=== PATIENT | female | born 1980 | race Caucasian/White ===

== ENCOUNTER 2024-08-24 20:56 | Emergency (ER) | payer OTHER, SELFPAY ==
[2024-08-24 20:57] VITALS: BP 108/81
--- NOTE | 2024-08-24 21:42 | ED.GENMED ---
History of Present Illness
General
Chief Complaint: Eye Problems
Time Seen by Provider: 08/24/24 21:09
History of Present Illness
History of Present Illness:
43-year-old female presents for evaluation of right inner eye discomfort after a hard-boiled egg exploded in her face. Denies blurry vision. Currently wearing glasses, but does wear contacts on occasion.
Past History
Past History
ED Past Medical History: None
Social History
Tobacco: Non-smoker
Alcohol: None
Living: with family
Review of Systems
Review of Systems
Allergies reviewed?: Yes
All Other Systems: ROS reviewed and negative except as documented in HPI and ROS
Phy Exam
Physical Exam
Physical Exam:
GEN: Well appearing, NAD, WDWN
HEENT: Oral mucosa moist, no scleral icterus
Eyes: No conjunctival injection or hyperemia, no hyphema or hypopyon. Extraocular motions intact. Scant fluorescein uptake to the medial sclera, no obvious foreign bodies
Cardiac: Regular rate
Lung: No respiratory distress, no tachypnea
MSK: No gross deformity or injuries
Skin: Good color, no pallor or jaundice, no rashes
Neuro: AO x3, moves all extremities freely
Psych: Calm, cooperative
Course
Orders/Labs/Results
Orders:
Orders
08/24/24 21:42
Erythromycin (Ilotycin) [Erythromycin 0.5% Ophthalmic Ointment] See Dose Instructions OPHTH NOW STA
08/24/24 21:54
Fluorescein Sodium [Ful-Aparna] 1 mg .ROUTE .STK-MED ONE
Tetracaine HCl [Tetracaine 0.5% Ophthalmic Solution] 1 drop .ROUTE .STK-MED ONE
Vital Signs
Initial and Last Documented VS:
Initial Vital Signs
Temp Pulse Resp BP Pulse Ox
98.3 F 74 20 108/81 99
08/24/24 20:57 08/24/24 20:57 08/24/24 20:57 08/24/24 20:57 08/24/24 20:57
Last Documented Vital Signs
Temp Pulse Resp BP Pulse Ox
98.3 F 74 20 108/81 99
08/24/24 20:57 08/24/24 20:57 08/24/24 20:57 08/24/24 20:57 08/24/24 20:57
MDM/Problems Addressed
MDM/Problems Addressed:
Exam is relatively benign, likely a minimal thermal burn to the eye, will treat with topical erythromycin, recommend avoidance of contact lenses for the next 5 days, outpatient optometry/ophthalmology follow-up if symptoms not improving
*Critical Care Note
Total Time (30-74mins, 75-104mins- exclusive of procedures): Not Applicable
ED Attending Note
-
Portions of this chart may have been created with voice recognition software.� Occasional wrong word or��sound alike� substitutions may have occurred due to the inherent limitations of voice recognition software.
Discharge Plan
Departure
Patient Disposition: Home (Routine Discharge)
Date of Disposition: 08/24/24
Time of Disposition: 21:42
Patient with high blood pressure during this ER visit?: No
Discharge Problem:
Thermal burn of cornea
Instructions: Corneal Abrasion (DC)
Prescriptions:
No Action
vit-iron fum-folic ac [ Vitamin with Minerals] 1 EACH tablet
1 ea PO QPM
Calcium Tab
1 tab PO QPM
Patient Comments:
pt does not know dosage of calcium
acetaminophen 325 MG tablet
650 mg PO Q3HPRN PRN (Reason: mild pain) Qty: 0 0RF
sennosides-docusate sodium 1 TABLET tablet
1 tab PO DAILYPRN PRN (Reason: constipation) Qty: 0 0RF
Referrals:
Javier Quiles MD [Family Provider] -
Activity Restrictions/Additional Instructions:
Your symptoms will likely improve in 48 hours
If you do not improve in 48 hours, follow up with your eye doctor
Apply the ointment three times per day for 3 days to prevent infection; it may blur your vision for 10-20 minutes after application
Interventions
Interventions:
*Risk Screen - Suicide Last Done: 08/24/24 21:23
*General Assessment Last Done: 08/24/24 20:57
*Neglect/Abuse Screening Last Done: 08/24/24 21:23
ED- Fall Risk Assessment Last Done: 08/24/24 22:07
*ED COVID-19 Vaccine History Last Done: 08/24/24 21:23
*Nursing Disposition Last Done: 08/24/24 22:07
Discharge Date and Time
Print Language: SUDANESE
[2024-08-24] MEDS: ERYTHROMYCIN 0.5% OPHTHALMIC OINTMENT 1 APPLIC OPHTH (21:57)
[2024-08-24 22:04] VITALS: BP 108/58
== END 2024-08-24 22:07 | disposition home or self-care (01) ==
LOC: EMR 20:56
PROVIDERS: EMERGENCY PHYSICIAN Emergency Medicine; FAMILY PHYSICIAN Family Medicine
DX: T26.11XA Burn of cornea and conjunctival sac, right eye, initial encounter (principal); X10.1XXA Contact with hot food, initial encounter; Z88.6 Allergy status to analgesic agent; Z91.018 Allergy to other foods; Z91.048 Other nonmedicinal substance allergy status
CPT/HCPCS: 99283

== ENCOUNTER → 2025-01-09 10:30 | Outpatient (REF) | payer OTHER, SELFPAY | LOC: HWWDC 10:30 | PROVIDERS: ATTENDING PHYSICIAN Obstetrics & Gynecology; FAMILY PHYSICIAN Family Medicine | DX: Z12.31 Encounter for screening mammogram for malignant neoplasm of breast (principal) | CPT/HCPCS: 77063; 77067 ==

== ENCOUNTER 2025-03-01 21:04 | Emergency (ER) | payer OTHER, SELFPAY ==
[2025-03-01 21:08] VITALS: BP 121/76
[2025-03-01 21:40] LABS: Urine Albumin Negative (Neg - Trace); Urine Bilirubin Negative (Negative); Urine Character Clear (Clear); Urine Color Yellow; Urine Glucose Negative (Negative); Urine Ketone Negative (Negative); Urine Leukocyte Negative (Negative); Urine Nitrite Negative (Negative); Urine Urobilinogen Negative (Neg - 1+); Urine pH 6.5 (5.0-9.0)
[2025-03-01 21:42] LABS: % Basophils 0.6 % (0-2); % Immature Granulocytes 0.2 % (0-0.5); % Lymphocytes 30.1 % (20.5-51.1); % Monocytes 9.2 % (1.7-9.3); % Neutrophils 58.9 % (42.2-75.2); Absolute Basophils 0.1 10^3/uL (0-0.2); Absolute Eosinophils 0.1 10^3/uL (0-0.7); Absolute Lymphocytes 2.8 10^3/uL (1.2-3.4); Absolute Monocytes 0.9 10^3/uL (0.1-0.6); Absolute Neutrophils 5.5 10^3/uL (1.4-6.5); Hematocrit 38.1 % (37.0-47.0); Hemoglobin 12.9 g/dL (12.0-16.0); Mean Corp Hgb Conc. 33.9 g/dL (33.0-37.0); Mean Corpuscular Hgb 28.9 pg (27.0-31.0); Mean Corpuscular Volume 85.4 fL (81.0-99.0); Nucleated Red Blood Cells % 0 %; Platelet Count 223 10^3/uL (130-400); Red Blood Cell Count 4.46 10^6/uL (4.20-5.40); Red Cell Dist. Width 12.5 % (11.5-14.5); White Blood Cell Count 9.3 10^3/uL (4.8-10.8)
[2025-03-01 21:55] LABS: Urine Occult Blood 4+ (Negative); Urine Specific Gravity 1.015 (<1.030)
[2025-03-01 21:58] LABS: HCG, Serum Qualitative Screen Negative
[2025-03-01 22:03] LABS: ALT (SGPT) 23 U/L (0-35); AST (SGOT) 25 U/L (14-36); Albumin 4.5 g/dl (3.5-5.0); Alkaline Phosphatase 50 U/L (38-126); Blood Urea Nitrogen 21 mg/dl (7-17); Calcium 9.9 mg/dl (8.4-10.2); Carbon Dioxide 29 mmol/L (22-30); Chloride 103 mmol/L (98-107); Glucose 83 mg/dl (70-99); Lipase 298 U/L (23-300); Potassium 4.2 mmol/L (3.5-5.1); Sodium 140 mmol/L (135-145); Total Bilirubin 0.7 mg/dl (0.2-1.3); Total Protein 7.3 g/dl (6.3-8.2); eGFR > 60.00
[2025-03-01 22:10] LABS: Urine Squamous Cell 16-20 /LPF (Few)
[2025-03-01 22:11] LABS: Urine White Cell 0-2 /HPF (0-5)
[2025-03-01 22:49] VITALS: BP 116/66
--- NOTE | 2025-03-01 23:47 | ED.GENMED ---
History of Present Illness
General
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
Source: patient
Exam Limitations: none
Time Seen by Provider: 03/01/25 23:27
Nursing documentation reviewed up to this point in time: agreed with
History of Present Illness
History of Present Illness:
This is a 44 y/o female with no pmh who presents emergency department today with concerns of left-sided groin pain that started yesterday. Patient states that when she first started having pain yesterday, she thought nothing of it and thought it was
a groin strain, then however when she woke up today, she noted that the pain is much more severe and she noticed the pain upon wakening. She notes that it is much worse with walking or any movement of her hip. She states that even moving around in
bed makes the pain a lot worse. She also has back pain associated with this as well that she feels like a band across her her back is not worse on one side versus other. Patient has no fevers or chills associated with this, no nausea or vomiting.
She does note some mild dysuria which she first noticed a few days ago after removing a tampon. Patient states that she had a tampon in for longer than she should have, around 9 hours and states that since then, she has felt some irritation in her
vagina but states has not gotten worse. She denies any blood in her urine. She never had pain like this before. Patient denies any inciting injury to the pain, denies any specific injury or exercising that incited the pain. Patient denies any
changes to her appetite.
Past History
Past History
ED Past Medical History: None
Social History
Tobacco: Non-smoker
Alcohol: None
Living: with family
Review of Systems
Review of Systems
All Other Systems: ROS reviewed and negative except as documented in HPI and ROS
Phy Exam
Physical Exam
Physical Exam:
General: Patient is well appearing and in no acute distress; non-toxic
Skin: Warm and dry, no rashes or lesions
Head: Normocephalic, atraumatic
Eyes: Sclera non-icteric. EOMs intact.
Cardiac: Regular rate and rhythm
Peripheral Vascular: No lower extremity swelling or edema
Pulm: Normal respiratory effort
Abdomen: No palpable abdominal masses, mild left sided lower abdominal tenderness to palpation with pain extending into left groin area
Genitourinary: Deferred
Musculoskeletal: Groin pain worsens with hip flexion, no pain with abduction/adduction, internal/external rotation. Tenderness to palpation of proximal anterior thigh
Neuro: CN II-XII intact, no focal neurologic deficits.
Psychiatric: Appropriate mood and affect.
Course
Orders/Labs/Results
Orders:
Orders
03/01/25 21:12
Test Result ONCE
03/01/25 21:22
Complete Blood Count/With Diff Urgent
Comprehensive Metabolic Panel Urgent
HCG, Serum Qualitative Screen Urgent
Lipase Urgent
03/01/25 21:23
Urine Culture Reflexed from UA [Urinalysis Reflex To Culture] Urgent
Date Specimen was Collected: 03/01/25
Time Specimen was Collected: 21:12
Urine Microscopic Reflex Cult Urgent
03/01/25 23:46
Acetaminophen [Tylenol] 1,000 mg PO NOW STA
03/02/25 00:03
CT Abd/pel Without Iv Or Oral Urgent
Reason For Exam: left groin pain, flank pain
Abnormal Lab Results
03/01/25 03/01/25
21:22 21:23
MPV 11.0 H fL
(7.4-10.4)
Absolute Monos (auto) 0.9 H 10^3/uL
(0.1-0.6)
BUN 21 H mg/dl
(7-17)
Ur Occult Blood Reflex 4+ A
(Negative)
Urine RBC 3-6 A /HPF
(0-2)
03/01/25 21:22
03/01/25 21:22
Vital Signs
Initial and Last Documented VS:
Initial Vital Signs
Temp Pulse Resp BP Pulse Ox
98.1 F 81 20 121/76 99
03/01/25 21:08 03/01/25 21:08 03/01/25 21:08 03/01/25 21:08 03/01/25 21:08
Last Documented Vital Signs
Temp Pulse Resp BP Pulse Ox
98.1 F 73 16 112/71 97
03/01/25 21:08 03/02/25 02:15 03/02/25 02:15 03/02/25 02:15 03/02/25 02:15
MDM/Problems Addressed
Differential Diagnosis Includes:
ddx include inguinal strain, kidney stone, vaginitis, ruptured ovarian cyst, iliopsoas strain/biceps femoris strain
MDM/Problems Addressed:
This is a 44-year-old female who presents emergency department today with left-sided groin pain/and thigh pain. History is as above. On physical exam, patient is well-appearing in no acute distress she is afebrile. She does have left groin/pelvic
tenderness with palpation that is worse with hip flexion and worse with ambulation. Pain responds well to Tylenol. In light of the blood in the urine, did obtain plain CAT scan to rule out kidney stone, patient was also concerned about potential
ovarian cyst. CAT scans negative for ovarian cyst, no evidence of kidney stone. Suspect blood in urine as a result of patient's recent menstrual period a few days prior. In light of patient's symptoms worsening with movement, tenderness on the
anteriolateral thigh, and clear worsening with hip flexion, suspect ilioinguinal strain. Low suspicion for ovarian torsion. Discussed conservative measures and follow up with primary. Pt stable for discharge.
*Pulse Oximetry
Patient hypoxic: no
*Critical Care Note
Total Time (30-74mins, 75-104mins- exclusive of procedures): Not Applicable
ED Attending Note
-
Portions of this chart may have been created with voice recognition software.� Occasional wrong word or��sound alike� substitutions may have occurred due to the inherent limitations of voice recognition software.
Discharge Plan
Departure
Patient Disposition: Home (Routine Discharge)
Date of Disposition: 03/02/25
Time of Disposition: 01:56
Patient with high blood pressure during this ER visit?: Yes
Condition: Good
Discharge Problem:
Strain of left inguinal muscle
Instructions: Groin strain
Prescriptions:
New
cyclobenzaprine 15 mg capsule,extended release 24hr
15 mg PO DAILY Qty: 10 0RF
No Action
vit-iron fum-folic ac [ Vitamin with Minerals] 1 EACH tablet
1 ea PO QPM
Calcium Tab
1 tab PO QPM
Patient Comments:
pt does not know dosage of calcium
acetaminophen 325 MG tablet
650 mg PO Q3HPRN PRN (Reason: mild pain) Qty: 0 0RF
sennosides-docusate sodium 1 TABLET tablet
1 tab PO DAILYPRN PRN (Reason: constipation) Qty: 0 0RF
Referrals:
Javier Quiles MD [Family Provider] -
Stand Alone Forms: Return to Work
Activity Restrictions/Additional Instructions:
You likely have a muscle strain, likely of one of your hip flexors likely your iliopsoas muscle.
You can take 1 g of Tylenol (2 extra strength tablets) every 6 hours as needed for pain. Please do not exceed 4 g in 24 hours.
cyclobenzaprine (Flexaril), muscle relaxant, has been sent to your pharmacy. You can take 1 tablet once daily. It can make you drowsy. I recommend taking it at bedtime. Do not drive while taking this medication.
PLEASE RETURN EMERGENCY DEPARTMENT SHOULD DEVELOP AN ACUTE WORSENING OF YOUR PAIN, INABILITY TO AMBULATE, FEVERS OR CHILLS, INTRACTABLE NAUSEA OR VOMITING, BURNING WITH URINATION, ANY OTHER SIGNS OR SYMPTOMS WORRISOME TO YOU.
Interventions
Interventions:
*Risk Screen - Suicide Last Done: 03/02/25 00:00
*General Assessment Last Done: 03/01/25 21:08
*Neglect/Abuse Screening Last Done: 03/01/25 23:41
*ED- Fall Risk Assessment Last Done: 03/01/25 23:41
*ED COVID-19 Vaccine History Last Done: 03/01/25 23:46
*Nursing Disposition Last Done: 03/02/25 02:15
ED-Female Genitourinary Assessment Last Done: 03/01/25 23:41
Discharge Date and Time
Discharge Date/Time: 03/02/25 02:15
Print Language: BULGARIAN
[2025-03-01 23:50] VITALS: BMI 24.1
[2025-03-01] MEDS: TYLENOL 1000 MG PO (23:52)
[2025-03-01 23:56] VITALS: BP 119/65
[2025-03-02 02:15] VITALS: BP 112/71
== END 2025-03-02 02:15 | disposition home or self-care (01) ==
LOC: EMR 21:04
PROVIDERS: Emergency Medicine; EMERGENCY PHYSICIAN Emergency Medicine; FAMILY PHYSICIAN Family Medicine
DX: S39.011A Strain of muscle, fascia and tendon of abdomen, initial encounter (principal); M54.9 Dorsalgia, unspecified; R30.0 Dysuria; M79.652 Pain in left thigh; R31.9 Hematuria, unspecified; R19.7 Diarrhea, unspecified; X58.XXXA Exposure to other specified factors, initial encounter; R03.0 Elevated blood-pressure reading, without diagnosis of hypertension; Z88.6 Allergy status to analgesic agent; Z91.018 Allergy to other foods; Z91.048 Other nonmedicinal substance allergy status
CPT/HCPCS: 99284; 74176; 80053; 81003; 81015; 83690; 84703; 85025

== ENCOUNTER → 2025-05-14 15:45 | Outpatient (REF) | payer OTHER, SELFPAY | LOC: HWRAD 15:45 | PROVIDERS: ATTENDING PHYSICIAN Student in an Organized Health Care Education/Training Program | DX: M79.672 Pain in left foot (principal) | CPT/HCPCS: 73630 ==